=== PATIENT | male | born 1970 | race Caucasian/White ===

== ENCOUNTER 2016-10-28 07:36 | Emergency (ER) | payer SELFPAY ==
[2016-10-28] MEDS ORDERED: KETOROLAC TROMETHAMINE 30 MG/1ML VIAL IVP ONE (07:53)
[2016-10-28] MEDS ORDERED: fentaNYL CITRATE/PF 100 MCG/ 2ML AMP IVP ONE (07:53)
[2016-10-28 08:16] LABS: BASOPHILS % 0.3 (0.0-1.5); EOSINOPHILS % 2.9 % (0.0-6.8); LYMPHOCYTES # 1.2 # k/uL (0.6-4.0); MEAN CORPUSCULAR HEMOGLOBIN 29.9 pg (28.0-34.0); MONOCYTES # 1.1 # k/uL (0.0-0.9); MONOCYTES % 8.3 % (0.0-11.0); NEUTROPHILS # 10.1 # k/uL (1.4-7.7)
[2016-10-28 08:28] LABS: eGFR (African) > 60; eGFR (Non-African) > 60
--- NOTE | 2016-10-28 08:52 | ED Physician Documentation ---
Upper Extremity Injury - HISTORIAN Historian: patient - HPI Stated Complaint: Right elbow pain Chief Complaint: Upper Extremity Injury Onset: yesterday (last night) Where: home Severity: severe Duration: worse Context: fall Associated Symptoms: tingling Further Comments: yes (46 year old male patient presents with complaint of right elbow pain, states he fell last night and hit right elbow on the concrete. Took tylenol last night, used ice. No improvement. Pain worse with extension. C/O severe pain with pronation and supination.) - ROS CONST: no problems CVS/RESP: none NEURO: none MS/SKIN/LYMPH: none GI/: denies: nausea, vomiting - PAST HX Past History: Rt handed, other (HTN, depression, asthma) Allergies/Adverse Reactions: Allergies Allergy/AdvReac Type Severity Reaction Status Date / Time Penicillins Allergy Severe stops Verified 10/28/16 07:55 breathing Home Medications: Ambulatory Orders Medication Instructions Recorded Albuterol Sulfate [Ventolin HFN] 1 inh INH DIRECTED 03/31/16 Fluoxetine HCl [Prozac] 1 tab PO D 03/31/16 Lisinopril/Hydrochlorothiazide 1 tab PO DAILY 03/31/16 [Zestoretic 20-12.5 mg Tablet] Ketorolac Tromethamine [Toradol] 10 mg PO TID #15 tablet 10/28/16 - SOCIAL HX Smoking History: non-smoker Alcohol Use: occasionally - FAMILY HX Family History: no significant history - VITAL SIGNS Vital Signs: Vital Signs Temp Pulse Resp BP Pulse Ox 98.4 F 84 18 132/74 97 10/28/16 10:05 10/28/16 10:05 10/28/16 10:05 10/28/16 10:05 10/28/16 10:05 - REVIEWED ASSESSMENTS Nursing Assessment Reviewed: Yes Vitals Reviewed: Yes Progress - Progress Progress: 0920 Patient states pain has improved after toradol and fentanyl. 0940 Reviewed xray finding with radiologist. Will treat as fracture due to patient's symptoms. Reviewed discharge instructions with patient and plan of care. Offered work note - patient refused, states "I have to work". Posterior OCL applied, cap refill prompt. Will treat with NSAID due to significant edema. Prescription for norco provided. Orthopedic referral list provided. Questions answered. ED Results Lab/Radiology - Lab Results Lab Results: Lab Results 0110/28/16 10/28/16 08:41 08:07 08:07 WBC 13.00 K/ul H K/ul (4.00-12.00) RBC 4.67 M/ul M/ul (3.90-5.20) Hgb 14.0 g/dL g/dL (12.0-18.0) Hct 41.6 % % (37.0-53.0) MCV 89.2 fl fl (80.0-100.0) MCH 29.9 pg pg (28.0-34.0) MCHC 33.5 g/dL g/dL (30.0-36.0) RDW 12.3 % % (11.3-14.3) Plt Count 211 K/mm3 K/mm3 (130-400) Neut % (Auto) 77.7 % % (39.0-79.0) Lymph % (Auto) 9.4 % L % (16.0-50.0) Dooly % (Auto) 8.3 % % (0.0-11.0) Eos % (Auto) 2.9 % % (0.0-6.8) Baso % (Auto) 0.3 (0.0-1.5) Neut # 10.1 # k/uL H # k/uL (1.4-7.7) Lymph # 1.2 # k/uL # k/uL (0.6-4.0) Dooly # 1.1 # k/uL H # k/uL (0.0-0.9) Eos # 0.4 # k/uL # k/uL (0.0-0.6) Baso # 0.0 # k/uL # k/uL (0.0-0.5) Reactive Lymphs % 1.4 % % (0.0-5.0) Reactive Lymphs # 0.2 # k/uL # k/uL (0.0-0.8) Sodium 132 mmol/L L mmol/L (136-145) Potassium 3.8 mmol/L mmol/L (3.5-5.0) Chloride 109 mmol/L mmol/L (98-110) Carbon Dioxide 29 mmol/L mmol/L (20-32) BUN 14 mg/dL mg/dL (10-26) Creatinine 0.8 mg/dL mg/dL (0.4-1.5) Estimated Creat Clear 196 Est GFR ( Amer) > 60 (60 - ) Est GFR (Non-Af Amer) > 60 (60 - ) Glucose 120 mg/dL H mg/dL (70-99) Uric Acid 8.1 mg/dL H mg/dL (2.0-7.8) Calcium 9.3 mg/dL mg/dL (8.5-10.5) Total Bilirubin 0.7 mg/dL mg/dL (0.2-1.2) AST 34 U/L U/L (0-41) ALT 40 U/L U/L (0-45) Alkaline Phosphatase 84 U/L U/L (46-116) Total Protein 7.6 g/dL g/dL (6.0-8.5) Albumin 4.7 g/dL g/dL (3.0-5.5) - Radiology Radiology Impressions: 3 views of the elbow History:PT FELL ON ICE LAST NIGHT, PAIN IN RIGHT ELBOW Findings: No comparison studies There is cortical irregularity of the radial head seen only on the lateral view with suggestion of a tiny elbow joint effusion. There is minimal soft tissue swelling at the elbow. Impression: 1.There is cortical step off of the radial head seen only on the lateral view without any fracture fragments. While this may be projectional, occult radial head fracture is difficult to exclude. Recommend followup. 2. Soft tissue swelling at the right elbow. Electronically signed on Oct 28, 2016 9:06:00 AM REAL ESTATE ANALYST by: Sandee Calix Question occult radial head fracture. Findings discussed by Dr. Calix with Dr. Swenson on 10/28/16 at approx. 9:37 am REAL ESTATE ANALYST - Orders Orders: ED Orders Category Date Time Status Place Saline Lock/IV NOW Care 10/28/16 07:53 Active Short Arm Splint 1T Care 10/28/16 09:43 Active Sling to Affected Extremity 1T Care 10/28/16 09:48 Active ELBOW 3 VIEWS [RAD] Stat Exams 10/28/16 Taken CBC/PLATELET/DIFF Stat Lab 10/28/16 08:07 Completed CMP Stat Lab 10/28/16 08:07 Completed URIC ACID Stat Lab 10/28/16 08:41 Completed Ketorolac Tromethamine [Toradol] Med 10/28/16 07:53 Discontinued 30 mg IVP NOW ONE fentaNYL CITRATE/PF [Duragesic] Med 10/28/16 07:53 Discontinued 50 mcg IVP NOW ONE Upper Extremity Injury Physic - Physical Exam General Appearance: moderate distress Hand: normal inspection, non-tender, no evidence of injury, normal ROM Wrist: normal inspection, non-tender, no evidence of injury, normal ROM Elbow/Forearm: bone tenderness, limited ROM, pain, soft tissue tenderness, swelling Shoulder: normal inspection, non-tender, no evidence of injury, normal ROM Neuro/Vascular/Tendon: no vascular compromise, motor nml, sensation nml, ROM nml Skin: warm,dry Head/ENT: nml inspection, pharynx nml Neck/Back: nml inspection, non-tender Resp/CVS: chest non-tender, breath sounds nml, heart sounds nml, no resp. distress, lungs clear, reg. rate & rhythm Abdomen: non-tender, pelvis stable Discharge Clincal Impression: Radial head fracture, closed Qualifiers: Encounter type: initial encounter Fracture alignment: nondisplaced Laterality: right Qualified Code(s): S52.124A - Nondisplaced fracture of head of right radius, initial encounter for closed fracture Fall Qualifiers: Encounter type: initial encounter Qualified Code(s): W19.XXXA - Unspecified fall, initial encounter Prescriptions: Ketorolac Tromethamine [Toradol] 10 mg PO TID #15 tablet Referrals: Noe Perez MD [Primary Care Provider] - 2 Days Home Medications: Ambulatory Orders Albuterol Sulfate [Ventolin HFN] 1 inh INH DIRECTED 03/31/16 Fluoxetine HCl [Prozac] 1 tab PO D 03/31/16 Lisinopril/Hydrochlorothiazide [Zestoretic 20-12.5 mg Tablet] 1 tab PO DAILY Ketorolac Tromethamine [Toradol] 10 mg PO TID #15 tablet 10/28/16 Condition: Stable Disposition: 01 HOME, SELF-CARE Decision to Admit: NO Decision Time: 09:50
[2016-10-28 10:17] VITALS: BP 132/74
--- NOTE | 2016-10-28 18:23 | Diagnostic Imaging Report ---
[facility] [address] [facility].[address] [address] ~ ~ ~ ~ Report Submission Date: Oct 28, 2016 9:06:00 AM LATHE MECHANIC Patient ~ Study Name: JULIAN LOFTON ~ Date: Oct 28, 2016 8:24:20 AM LATHE MECHANIC ~ Modality Type: CR Gender: M ~ Description: UPPER EXTREMITY : 74 ~ Institution: [facility] Physician: IVAN HOPPER ~ ~ ~ ~ 3 views of the elbow History:PT FELL ON ICE LAST NIGHT, PAIN IN RIGHT ELBOW Findings: No comparison studies There is cortical irregularity of the radial head seen only on the lateral view with suggestion of a tiny elbow joint effusion. There is minimal soft tissue swelling at the elbow. Impression: 1.There is cortical step off of the radial head seen only on the lateral view without any fracture fragments. While this may be projectional, occult radial head fracture is difficult to exclude. Recommend followup. 2. Soft tissue swelling at the right elbow. ~ Electronically signed on Oct 28, 2016 9:06:00 AM LATHE MECHANIC by: Sandee Calix Question occult radial head fracture. Findings discussed by Dr. Calix with Dr. Swenson on 10/28/16 at approx. 9:37 am LATHE MECHANIC Addendum electronically signed by Sandee Calix on October 28, 2016 9:39: 04 AM LATHE MECHANIC MTDD
== END 2016-10-28 10:05 | disposition home or self-care (01) ==
LOC: ED 07:36
DX: S52.124A Nondisplaced fracture of head of right radius, initial encounter for closed fracture (principal); W19.XXXA Unspecified fall, initial encounter
CPT/HCPCS: 73080; 80053; 84550; 85025; J1885; J3010; 96374; 96375; 99283; 99284; S1016

== ENCOUNTER 2017-02-12 06:02 | Emergency (ER) | payer SELFPAY ==
[2017-02-12] MEDS: IPRATROPIUM/ALBUTEROL SULFATE 3 ML AMPUL.NEB NEB ONE (06:05)
[2017-02-12] MEDS ORDERED: IPRATROPIUM/ALBUTEROL SULFATE 3 ML AMPUL.NEB NEB ONE (06:05)
[2017-02-12] MEDS: ALBUTEROL SULFATE 2.5 MG/3 ML AMPUL.NEB NEB ONE (06:20)
[2017-02-12] MEDS: methylPREDNISolone SOD SUCC 125 MG/2 ML VIAL IVP ONE (06:30)
[2017-02-12 06:36] LABS: MEAN CORPUSCULAR HEMOGLOBIN 28.8 pg (28.0-34.0); MEAN CORPUSCULAR VOLUME 89.5 fl (80.0-100.0)
[2017-02-12 06:37] LABS: BASOPHILS % 0.6 (0.0-1.5); EOSINOPHILS % 5.5 % (0.0-6.8); MONOCYTES % 6.8 % (0.0-11.0); NEUTROPHILS # 5.1 # k/uL (1.4-7.7)
--- NOTE | 2017-02-12 06:39 | ED Physician Documentation ---
Dyspnea - HISTORIAN Historian: patient - HPI Chief Complaint: Dyspnea Onset: hours Duration: continues in ED Initiating Event: out of meds Severity: severe Exacerbated By: coughing Further Comments: yes (46 year old male patient presents with complaints of SOB and wheezing which has become progressively worse. Patient is currently out of medications.) - ROS CONST: no problems EYES/ENT: none GI/: none NEURO/PSYCH: denies: headache MS/SKIN/LYMPH: none - PAST HX Lung Disease: asthma Cardiac Disease: none PE Risk Factors: hypertension Other History: hyperlipidemia Allergies/Adverse Reactions: Allergies Allergy/AdvReac Type Severity Reaction Status Date / Time Penicillins Allergy Severe stops Verified 12/25/16 09:56 breathing Home Medications: Ambulatory Orders Medication Instructions Recorded Albuterol Sulfate [Ventolin HFN] 1 inh INH DIRECTED 03/31/16 Albuterol Sulfate 2.5 mg NEB Q4H PRN #100 ampul.neb 12/25/16 Ipratropium/Albuterol Sulfate 3 ml NEB Q6H PRN #100 ampul.neb 12/25/16 [Duoneb] Albuterol Sulfate [Ventolin] 2.5 mg NEB Q4 #25 ampul.neb 02/12/17 - SOCIAL HX Smoking History: non-smoker - FAMILY HX Family History: none - VITAL SIGNS Vital Signs: Vital Signs Temp Pulse Resp BP Pulse Ox 154/116 12/25/16 11:36 - REVIEWED ASSESSMENTS Nursing Assessment Reviewed: Yes Vitals Reviewed: Yes Progress - Progress Progress: RA Sat 96% on RA with severe wheezing and decreased air movement in bases. Duoneb started Solumedrol 125mg IV given 0655 Significant improvement in air movement. Faint exp wheezes. Patient reports he has been out of his medications for 3 days. History of severe asthma , well known to me, unable to control his asthma when out of health insurance. Coupon for advair provided. Albuterol neb and Duoneb sent to [facility] [address] Mariano - lab and xray pending. ED Results Lab/Radiology - Lab Results Lab Results: Lab Results 02/12/17 06:15 WBC 9.39 K/ul K/ul (4.00-12.00) RBC 5.15 M/ul M/ul (3.90-5.20) Hgb 14.8 g/dL g/dL (12.0-18.0) Hct 46.1 % % (37.0-53.0) MCV 89.5 fl fl (80.0-100.0) MCH 28.8 pg pg (28.0-34.0) MCHC 32.2 g/dL g/dL (30.0-36.0) RDW 12.8 % % (11.3-14.3) Plt Count 203 K/mm3 K/mm3 (130-400) Neut % (Auto) 54.1 % % (39.0-79.0) Lymph % (Auto) 31.4 % % (16.0-50.0) Lucas % (Auto) 6.8 % % (0.0-11.0) Eos % (Auto) 5.5 % % (0.0-6.8) Baso % (Auto) 0.6 (0.0-1.5) Neut # 5.1 # k/uL # k/uL (1.4-7.7) Lymph # 3.0 # k/uL # k/uL (0.6-4.0) Lucas # 0.6 # k/uL # k/uL (0.0-0.9) Eos # 0.5 # k/uL # k/uL (0.0-0.6) Baso # 0.1 # k/uL # k/uL (0.0-0.5) Reactive Lymphs % 1.5 % % (0.0-5.0) Reactive Lymphs # 0.1 # k/uL # k/uL (0.0-0.8) - Orders Orders: ED Orders Category Date Time Status Continuous EKG monitoring Q30M Care 02/12/17 06:15 Active Continuous Pulse Oximetry Q30M Care 02/12/17 06:[address] Saline Lock/IV NOW Care 02/12/17 06:15 Active CHEST 1 VIEW [RAD] Stat Exams 02/12/17 06:15 Ordered CBC/PLATELET/DIFF Stat Lab 02/12/17 06:15 Completed CMP Stat Lab 02/12/17 06:15 Received Albuterol Sulfate [Ventolin] Med 02/12/17 06:16 Discontinued 2.5 mg NEB NOW ONE Ipratropium/Albuterol Sulfate [Duoneb] Med 02/12/17 06:05 Discontinued 3 ml NEB .STK-MED ONE Ipratropium/Albuterol Sulfate [Duoneb] Med 02/12/17 06:16 Discontinued 3 ml NEB NOW ONE methylPREDNISolone SOD SUCC [Solu-MEDROL] Med 02/12/17 06:16 Discontinued 125 mg IVP NOW ONE Dyspnea Physical Exam - EXAM General Appearance: moderate distress EENT: eye inspection normal, BEVERLY Respiratory: no pain on inspiration, speaks full sentences, decreased air movement (bases), wheezes CVS: reg. 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
[2017-02-12 06:54] LABS: eGFR (African) > 60; eGFR (Non-African) > 60
--- NOTE | 2017-02-12 06:59 | Diagnostic Imaging Report ---
ELIAZAR LOVE (OFFICE ADMINISTRATIVE ASSISTANT) - ER [facility] [address] [facility] [address] [place], [place]. [address] Report Submission Date: February 12, 2017 6:32:17 AM CDT Patient Study Name: JULIAN LOFTON Date: February 12, 2017 6:19:47 AM CDT Modality Type: CR Gender: M Description: CHEST : 74 Institution: [facility] Physician: ELIAZAR LOVE (JUANIS) - ER Chest AP portable at 619 hours of February 12, 2017 Clinical history: Respiratory distress, chest pain with wheezing Normal heart shadow and mediastinum. Clear lungs without definite evidence of acute infiltrate or pleural effusion. No pneumothorax. Normally appearing bony thorax. Impression: No active pulmonary pathology Electronically signed on February 12, 2017 6:32:17 AM CDT by: Reza HUNTER
[2017-02-12 07:29] VITALS: BP 131/84
== END 2017-02-12 07:27 ==
LOC: ED 06:02
DX: J45.901 Unspecified asthma with (acute) exacerbation (principal)
CPT/HCPCS: 71010; 80053; 85025; J2930; 96374; 99283; S1016

== ENCOUNTER 2017-09-01 07:45 | Emergency (ER) | payer SELFPAY ==
[2017-09-01] MEDS ORDERED: IPRATROPIUM/ALBUTEROL SULFATE 3 ML AMPUL.NEB NEB ONE ×2 (07:48→08:11)
[2017-09-01] MEDS ORDERED: BUDESONIDE 0.5MG/2ML AMPUL.NEB NEB ONE (07:48)
[2017-09-01] MEDS ORDERED: methylPREDNISolone SOD SUCC 125 MG/2 ML VIAL IVP PRN (07:48)
--- NOTE | 2017-09-01 07:54 | ED Physician Documentation ---
Asthma - HISTORIAN Historian: patient, friend - HPI Chief Complaint: Asthma Additional Information: prog sob inc asthma past 3-4 days finished pred dose pack approx 10 days ago-- no cigarettes Onset: days ago (3-4) Duration: continues in ED, worse Initiating Event: out of meds. denies: upper respiratory illness Associated Symptoms:: trouble breathing, shortness of breath, other (pain lt lower lung w/prog sob). 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 denies: cardiac disease Allergies/Adverse Reactions: Allergies Allergy/AdvReac Type Severity Reaction Status Date / Time Penicillins Allergy Severe stops Verified 09/01/17 08:00 breathing Home Medications: Ambulatory Orders Medication Instructions Recorded Albuterol Sulfate [Ventolin HFN] 1 inh INH DIRECTED 03/31/16 Albuterol Sulfate 2.5 mg NEB Q4H PRN #100 ampul.neb 12/25/16 Ipratropium/Albuterol Sulfate 3 ml NEB Q6H PRN #100 ampul.neb 12/25/16 [Duoneb] Albuterol Sulfate [Ventolin] 2.5 mg NEB Q4 #25 ampul.neb 02/12/17 Lisinopril [Zestril] 10 mg PO D 02/12/17 Albuterol Sulfate [Ventolin HFN] 2.5 mg NEB QID PRN #30 ampul.neb 09/01/17 Azithromycin 500 mg PO D #5 tablet 09/01/17 Ipratropium/Albuterol Sulfate 3 ml IH BID PRN #30 ampul.neb 09/01/17 [Duoneb] - SOCIAL HX Smoking History: non-smoker Alcohol Use: occasionally Drug Use: marijuana (rare) - FAMILY HX Family History: asthma - VITAL SIGNS Vital Signs: Vital Signs Temp Pulse Resp BP Pulse Ox 131/84 05/01/17 07:27 - REVIEWED ASSESSMENTS Nursing Assessment Reviewed: Yes Vitals Reviewed: Yes ED Results Lab/Radiology - Radiology Radiology Impressions: lt lower lobe infiltrate - Orders Orders: ED Orders Category Date Time Status CHEST P.A.&LAT 2 VIEWS [RAD] Stat Exams 09/01/17 Ordered CBC/PLATELET/DIFF Routine Lab 09/01/17 Ordered CMP Routine Lab 09/01/17 Ordered Budesonide [Pulmicort] Med 09/01/17 07:48 Discontinued 0.5 mg NEB .STK-MED ONE Ipratropium/Albuterol Sulfate [Duoneb] Med 09/01/17 07:48 Once 3 ml NEB NOW ONE methylPREDNISolone SOD SUCC [Solu-MEDROL] Med 09/01/17 07:48 Ordered 125 mg IVP NOW PRN Oxygen Daily Oxygen 09/01/17 08:00 Ordered Asthma Physical Exam - EXAM General Appearance: moderate distress EENT: eye inspection normal Neck: nml inspection. No: lymphadenopathy Respiratory: no pain on inspiration, respiratory distress, prolonged expirations , wheezes, rales, rhonchi, resp. fatigue. No: speaks full sentences, stridor CVS: reg rate & rhythm, heart sounds normal Abdomen: non-tender, no distention. No: tenderness Skin: color nml, no rash, diaphoresis (slight). No: cyanosis, pallor, ecchymosis Extremities: non-tender, normal range of motion, no evidence of injury, no edema Neuro/Psych: oriented x3, neuro intact, mood/affect nml. No: depressed mood/ affect Discharge Clincal Impression: ac exab asthma, pneumonia Prescriptions: Albuterol Sulfate [Ventolin HFN] 2.5 mg NEB QID PRN #30 ampul.neb PRN Reason: Asthma Azithromycin 500 mg PO D #5 tablet Ipratropium/Albuterol Sulfate [Duoneb] 3 ml IH BID PRN #30 ampul.neb PRN Reason: Asthma Referrals: Primary Doctor,No [Primary Care Provider] - 2 Days Condition: Good Disposition: 01 HOME, SELF-CARE Decision to Admit: NO Decision Time: 09:54
[2017-09-01 08:00] LABS: BASOPHILS % 0.8 (0.0-1.5); EOSINOPHILS % 6.2 % (0.0-6.8); MEAN CORPUSCULAR HEMOGLOBIN 29.7 pg (28.0-34.0); MEAN CORPUSCULAR VOLUME 91.2 fl (80.0-100.0); MONOCYTES % 5.4 % (0.0-11.0)
[2017-09-01 08:19] LABS: eGFR (African) > 60; eGFR (Non-African) > 60
[2017-09-01] MEDS: BUDESONIDE 0.5MG/2ML AMPUL.NEB NEB SCH ×2 (09:29→09:30)
[2017-09-01 10:02] VITALS: BP 109/70
--- NOTE | 2017-09-01 17:33 | Diagnostic Imaging Report ---
KIMBERLY FLEMING [facility] [address] [facility] [address] [address] Report Submission Date: Sep 01, 2017 8:20:17 AM CUFF PRESSER Patient Study Name: JULIAN LOFTON Date: Sep 01, 2017 8:06:14 AM CUFF PRESSER Modality Type: CR Gender: M Description: CHEST : 74 Institution: [facility] Physician: KIMBERLY FLEMING Examination: PA and lateral chest. History: Evaluate lung diaz. Comparison exam: 12 Feb 2017 Findings: PA lateral chest demonstrate a normal cardiac and mediastinal silhouette. Elevation of the right hemidiaphragm. No focal infiltrate. No blunting of the costophrenic margins. Osseous structures are appropriate for age. Impression: No acute pulmonary process. Electronically signed on Sep 01, 2017 8:20:17 AM CUFF PRESSER by: James HUNTER
== END 2017-09-01 09:57 | disposition home or self-care (01) ==
LOC: ED 07:45
DX: J45.901 Unspecified asthma with (acute) exacerbation (principal); J18.9 Pneumonia, unspecified organism
CPT/HCPCS: 71020; 80053; 85025; J2930; J7626; 96374; 99283; S1016

== ENCOUNTER 2017-10-15 13:05 | Emergency (ER) | payer SELFPAY ==
--- NOTE | 2017-10-15 13:11 | ED Physician Documentation ---
General Adult - HISTORIAN Historian: patient - HPI Stated Complaint: right ankle pain Chief Complaint: Lower Extremity Injury Onset: days ago (1) Timing: still present Severity: mild Further Comments: yes (states he fell on ice last night and "rolled ankle" he states his foot and ankle have pain. He states the pain is 6 on 1/10 scale and sharp. States he is not able to bear weight however he did walk into clinic. He has tried OTC meds with little to no relief. He denies any other injuries with the fall) Last known Well Code/Unknown Code: Unknown - ROS CONST: no problems MS/SKIN/LYMPH: none NEURO/PSYCH: denies: headache - PAST HX Past History: asthma, hypertension Other History: none Surgeries/Procedures: none Immunizations: referred to PCP Allergies/Adverse Reactions: Allergies Allergy/AdvReac Type Severity Reaction Status Date / Time Penicillins Allergy Severe stops Verified 10/15/17 13:36 breathing Home Medications: Ambulatory Orders Medication Instructions Recorded Albuterol Sulfate [Ventolin HFN] 1 inh INH DIRECTED 03/31/16 Albuterol Sulfate 2.5 mg NEB Q4H PRN #100 ampul.neb 12/25/16 Ipratropium/Albuterol Sulfate 3 ml NEB Q6H PRN #100 ampul.neb 12/25/16 [Duoneb] Albuterol Sulfate [Ventolin] 2.5 mg NEB Q4 #25 ampul.neb 02/12/17 Lisinopril [Zestril] 10 mg PO D 02/12/17 Albuterol Sulfate [Ventolin HFN] 2.5 mg NEB QID PRN #30 ampul.neb 09/01/17 Azithromycin 500 mg PO D #5 tablet 09/01/17 Ipratropium/Albuterol Sulfate 3 ml IH BID PRN #30 ampul.neb 09/01/17 [Duoneb] - SOCIAL HX Smoking History: non-smoker Alcohol Use: none Drug Use: none - FAMILY HX Family History: No - VITAL SIGNS Vital Signs: Vital Signs Temp Pulse Resp BP Pulse Ox 109/70 09/01/17 09:59 - REVIEWED ASSESSMENTS Nursing Assessment Reviewed: Yes Vitals Reviewed: Yes Progress - Progress Progress: 1409: states pain has improved. resting quietly in the bed. DG ED Results Lab/Radiology - Radiology Radiology Impressions: Right foot, 3 views History: Fall, pain Findings: No fracture, dislocation or abnormal bone production or destruction is identified. Impression: Normal. Electronically signed on Oct 15, 2017 2:07:39 PM MISDRAW HAND by: Mahendra Nesbitt Right ankle, 3 views History: Fall, injury, pain Findings: Well corticated bone fragment is noted at the tip of the lateral malleolus. This is consistent with chronic injury. Mild degenerative change is noted at the ankle joint. There is no acute fracture, dislocation or abnormal bone destruction. Impression: Chronic and degenerative change but no acute abnormality. Electronically signed on Oct 15, 2017 2:09:06 PM MISDRAW HAND by: Mahendra Nesbitt General Adult Physical Exam - PHYSICAL EXAM GENERAL APPEARANCE: no distress NECK: normal inspection RESPIRATORY: no resp distress, chest non-tender, breath sounds normal CVS: reg rate & rhythm, heart sounds normal, equal pulses ABDOMEN: soft BACK: normal inspection SKIN: warm/dry, normal color EXTREMITIES: other (right ankle with mild swelling. No abrasions or bruising. Cap refill + sensation + pulses + increased plain with flexion ) NEURO: oriented X3, CN's nml as tested Discharge Clincal Impression: Ankle pain, right Qualifiers: Chronicity: acute Qualified Code(s): M25.571 - Pain in right ankle and joints of right foot Referrals: Primary Doctor,No [Primary Care Provider] - 2 Days Comments: Elevate ankle with ice and rest James wrap Follow up with PCP in 2-3 days for further eval Return if any symptoms change or concerning Condition: Stable Disposition: 01 HOME, SELF-CARE Decision to Admit: NO Date of Decison to Admit: 10/15/17 Decision Time: 14:14
[2017-10-15] MEDS: KETOROLAC TROMETHAMINE 60 MG/2 ML VIAL IM ONE (13:36)
--- NOTE | 2017-10-15 14:19 | Diagnostic Imaging Report ---
RANDA HUGGINS [facility] [address] [facility] [address] [address] Report Submission Date: Oct 15, 2017 2:07:39 PM CHIMNEY MECHANIC Patient Study Name: JULIAN LOFTON Date: Oct 15, 2017 1:37:33 PM CHIMNEY MECHANIC Modality Type: CR Gender: M Description: LOWER EXTREMITY : 74 Institution: [facility] Physician: RANDA HUGGINS Right foot, 3 views History: Fall, pain Findings: No fracture, dislocation or abnormal bone production or destruction is identified. Impression: Normal. Electronically signed on Oct 15, 2017 2:07:39 PM CHIMNEY MECHANIC by: Mahendra HUNTER
--- NOTE | 2017-10-15 14:20 | Diagnostic Imaging Report ---
RANDA HUGGINS [facility] [address] [facility] [address] [place] [address]. [address] Report Submission Date: Oct 15, 2017 2:09:06 PM GLASS ETCHER HELPER Patient Study Name: JULIAN LOFTON Date: Oct 15, 2017 1:40:50 PM GLASS ETCHER HELPER Modality Type: CR Gender: M Description: LOWER EXTREMITY : 74 Institution: [facility] Physician: RANDA HUGGINS Right ankle, 3 views History: Fall, injury, pain Findings: Well corticated bone fragment is noted at the tip of the lateral malleolus. This is consistent with chronic injury. Mild degenerative change is noted at the ankle joint. There is no acute fracture, dislocation or abnormal bone destruction. Impression: Chronic and degenerative change but no acute abnormality. Electronically signed on Oct 15, 2017 2:09:06 PM GLASS ETCHER HELPER by: Mahendra HUNTER
[2017-10-15 14:38] VITALS: BP 148/104
== END 2017-10-15 14:25 | disposition home or self-care (01) ==
LOC: ED 13:05
DX: M25.571 Pain in right ankle and joints of right foot (principal)
CPT/HCPCS: 73610; 73630; 96374; 99283; J1885

== ENCOUNTER 2018-07-15 13:09 | Emergency (ER) | payer SELFPAY ==
[2018-07-15] MEDS ORDERED: IPRATROPIUM/ALBUTEROL SULFATE 3 ML AMPUL.NEB NEB ONE (13:20)
[2018-07-15] MEDS ORDERED: methylPREDNISolone SOD SUCC 125 MG/2 ML VIAL IVP ONE (13:20)
[2018-07-15] MEDS ORDERED: ALBUTEROL SULFATE 2.5 MG/3 ML AMPUL.NEB NEB ONE (13:28)
--- NOTE | 2018-07-15 14:04 | ED Physician Documentation ---
General Adult - HISTORIAN Historian: patient - HPI Stated Complaint: Asthma attack Chief Complaint: General Adult Onset: hours Timing: still present Severity: moderate Further Comments: yes (Pt is a 48 yo male with hx asthma. Pt was cleaning out a house and got a face full of dust and debris and began wheezing. He tried a neb tx at home, but this did not help much. Pt is audibly wheezing on presentation. No chest pain, n/v, or other sx.) - ROS CONST: no problems EYES/ENT: none CVS/RESP: shortness of breath GI/: none MS/SKIN/LYMPH: none - PAST HX Past History: asthma, hypertension Allergies/Adverse Reactions: Allergies Allergy/AdvReac Type Severity Reaction Status Date / Time Penicillins Allergy Severe stops Verified 10/15/17 13:36 breathing Home Medications: Ambulatory Orders Medication Instructions Recorded Albuterol Sulfate [Ventolin HFN] 1 inh INH DIRECTED 03/31/16 Albuterol Sulfate 2.5 mg NEB Q4H PRN #100 ampul.neb 12/25/16 Ipratropium/Albuterol Sulfate 3 ml NEB Q6H PRN #100 ampul.neb 12/25/16 [Duoneb] Albuterol Sulfate [Ventolin] 2.5 mg NEB Q4 #25 ampul.neb 02/12/17 Lisinopril [Zestril] 10 mg PO D 02/12/17 Albuterol Sulfate [Ventolin HFN] 2.5 mg NEB QID PRN #30 ampul.neb 09/01/17 Azithromycin 500 mg PO D #5 tablet 09/01/17 Ipratropium/Albuterol Sulfate 3 ml IH BID PRN #30 ampul.neb 09/01/17 [Duoneb] - SOCIAL HX Smoking History: non-smoker - FAMILY HX Family History: No - VITAL SIGNS Vital Signs: Vital Signs Temp Pulse Resp BP Pulse Ox 112 H 28 H 164/104 98 07/15/18 13:10 07/15/18 13:10 07/15/18 13:10 07/15/18 13:10 - REVIEWED ASSESSMENTS Nursing Assessment Reviewed: Yes Vitals Reviewed: Yes Progress - Progress Progress: Duoneb HFN much improved after one tx Solu-medrol 125 mg IV Albuterol HFN x 1 Rx Prednisone 50 mg. Take one by mouth once daily for 4 days. Start on 07-16-18. ED Results Lab/Radiology - Orders Orders: ED Orders Category Date Time Status Albuterol Sulfate [Ventolin] Med 07/15/18 13:28 Discontinued 2.5 mg NEB NOW ONE Ipratropium/Albuterol Sulfate [Duoneb] Med 07/15/18 13:20 Discontinued 3 ml NEB NOW ONE methylPREDNISolone SOD SUCC [Solu-MEDROL] Med 07/15/18 13:20 Discontinued 125 mg IVP NOW ONE General Adult Physical Exam - PHYSICAL EXAM GENERAL APPEARANCE: moderate distress EENT: pharynx normal NECK: normal inspection, supple RESPIRATORY: wheezes CVS: reg rate & rhythm, heart sounds normal ABDOMEN: soft, no organomegaly, normal bowel sounds BACK: normal inspection, no CVA tenderness SKIN: warm/dry, normal color EXTREMITIES: non-tender, normal range of motion, no evidence of injury, no edema NEURO: oriented X3, motor nml, sensation nml Discharge Clincal Impression: Acute asthma exacerbation Qualifiers: Asthma severity: moderate Asthma persistence: unspecified Qualified Code(s): J45.901 - Unspecified asthma with (acute) exacerbation Referrals: Primary Doctor,No [Primary Care Provider] - Condition: Good Disposition: HOME, SELF-CARE Decision to Admit: NO Decision Time: 14:06
[2018-07-15 15:05] VITALS: BP 170/104
== END 2018-07-15 14:05 | disposition home or self-care (01) ==
LOC: ED 13:09
DX: J45.901 Unspecified asthma with (acute) exacerbation (principal)
CPT/HCPCS: 94640; 96374; 99284; J2930; S1016